=== PATIENT | male | born 1990 | race African-American/Black ===

== ENCOUNTER 2017-07-29 10:52 | Emergency (ER) | payer BC ==
[~2017-07-29] VITALS: Ht 167.6 cm; Wt 69.4 kg
[2017-07-29 11:10] VITALS: BP 142/75
== END 2017-07-29 12:21 | disposition home or self-care (01) ==
LOC: ER 10:52
DX: G44.209 Tension-type headache, unspecified, not intractable (principal)
CPT/HCPCS: 70450

== ENCOUNTER 2024-07-28 09:01 | Emergency (ER) | payer BC, OTHER ==
[~2024-07-28] VITALS: Ht 167.6 cm; Wt 73.7 kg
[2024-07-28 10:44] VITALS: BP 135/94; PULSE 69; RESP 18; TEMP 98.4; O2SAT 99
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
[2024-07-28] MEDS ORDERED: BACL10TA PO (11:23)
[2024-07-28] MEDS ORDERED: IBUP-1456 PO (11:23)
[2024-07-28] MEDS: ACETAMINOPHEN 325 MG TAB PO ONE (11:24)
== END 2024-07-28 11:28 | disposition home or self-care (01) ==
LOC: ER 09:01
DX: S16.1XXA Strain of muscle, fascia and tendon at neck level, initial encounter (principal); S29.012A Strain of muscle and tendon of back wall of thorax, initial encounter; Z79.899 Other long term (current) drug therapy; V49.88XA Car occupant (driver) (passenger) injured in other specified transport accidents, initial encounter; Y93.I9 Activity, other involving external motion; Y92.488 Other paved roadways as the place of occurrence of the external cause; Y99.8 Other external cause status
CPT/HCPCS: 72040; 72070